=== PATIENT | female | born 1990 | race Two or more races ===

== ENCOUNTER 2016-10-06 18:08 | Emergency (ER) | payer MEDICAID ==
--- NOTE | ~2016-10-06 | ER ---
PATIENT'S NAME: GUS SEARS [facility] AGE: 26 Y [address] ROOM: [place] [id number] LOCATION: [facility] ADMIT DATE: 10/06/2016 ER/Outpatient Report DISCHARGE DATE: 10/06/2016 FAMILY PHYSICIAN: Aura Flores MD ATTENDING PHYSICIAN: Ray Bran Admission Time: 1808 hours. Time of Evaluation: 1957 hours. CHIEF COMPLAINT: Left flank plain pain, possible kidney stone. HISTORY OF PRESENT ILLNESS: Gus is a 26-year-old female who presents to the emergency room with her 2 children with an onset of left-sided back pain, discomfort in the last 24 to 36 hours. She reports last week she did have some increased frequency, but then this did go away. Her last menstrual cycle was about 2- 1/2 weeks ago. She has experienced some nausea, but no vomiting. She denies any fevers or chills. The patient does have a history of kidney stones, last one was 3 years ago in September. She did have to have surgery to remove this. She reports prior to this she has had multiple times of kidney stones and which she has been able to pass them. The patient denies any diarrhea or any other stomach pathology. PAST MEDICAL HISTORY: 1. Bipolar disease. 2. History of nephrolithiasis. 3. Postoperative left shoulder surgery. 4. Postoperative right knee surgery. 5. Postoperative T and A. ALLERGIES: PENICILLIN. CURRENT MEDICATIONS: 1. Depakote 250 mg 1 p.o. b.i.d. 2. Lexapro 150 mg 1 p.o. daily. 3. control pill 1 p.o. daily. SOCIAL HISTORY: The patient is a nonsmoker, denies any alcohol or drug use. FAMILY HISTORY: Not obtained. PATIENT'S NAME: GUS SEARS [facility] AGE: 26 Y [address] ROOM: [place], [place] [address] LOCATION: [facility] ADMIT DATE: 10/06/2016 ER/Outpatient Report DISCHARGE DATE: 10/06/2016 FAMILY PHYSICIAN: Aura Flores MD ATTENDING PHYSICIAN: Ray Bran REVIEW OF SYSTEMS: All systems were reviewed by myself and all negative with the exception of those noted in the HPI. PHYSICAL EXAMINATION: VITAL SIGNS: Current height 5 feet 6 inches, current weight 92 kg. Temperature 98.1, pulse 94, respirations 18, and blood pressure 121/56, and she is 94% on room air. Johny Coma Scale of 15. GENERAL: Gus is alert, cooperative, is having some intermittent pain to her left back, in which she does show some nonverbal cues indicating discomfort. SKIN: Overall is within normal limits. There is no rash to this left flank area. SKIN: Overall is within normal limits. No diaphoresis or pallor noted. HEENT: Eyes: Sclerae are nonicteric. Pupils are normal. Mouth and Throat: Oropharynx is clear. Buccal mucosa is moist. Tongue is midline. CHEST AND LUNGS: Lung sounds are clear throughout. HEART: Regular rhythm. No murmurs appreciated. ABDOMEN: Left flank area, CVA tenderness is present. It does not extend down into the groin or wrap-around. She denies any terrible pain in her suprapubic area, but a little discomfort. Bowel sounds are active, pretty soft throughout. There is no focal tenderness or guarding noted. No organomegaly present. LOWER EXTREMITIES: No peripheral edema is noted. NEUROLOGIC: Cranial nerves grossly intact. LABORATORY DATA: A urinalysis was obtained which does show 1+ turbidity, leukocytes 25 high with wbc's 2-5, moderate bacteria, epithelials is very small, and there is no hematuria or red blood cells noted. Please note, no other labs were done at this visit as the patient does not have anyone to be here with her and just wants to wait this out. ASSESSMENT: Urinary tract infection, rule out kidney stone. PLAN: We will have the patient increase her water intake. Strain her urine at home and may use ibuprofen or Tylenol for pain. Ciprofloxacin 500 mg 1 p.o. b.i.d. x10 days. It is sent along with Pyridium 100 mg 1 p.o. every 6 hours p.r.n. pain, #6 with no refills. She does know that we cannot rule out a kidney stone despite the negative hematuria, and if things do not improve, she is to follow up with her primary care physician, Dr. Flores, in the next 1-2 days. The patient is knowledgeable how to strain her urine and is aware of the risk PATIENT'S NAME: GUS SEARS [facility] AGE: 26 Y [address] ROOM: [place] [address] LOCATION: [facility] ADMIT DATE: 10/06/2016 ER/Outpatient Report DISCHARGE DATE: 10/06/2016 FAMILY PHYSICIAN: Aura Flores MD ATTENDING PHYSICIAN: Ray Bran of worsening and will return. The patient's condition is stable. FABIAN MCDUFFIE, BLOCKER AND SEWER FOR DO MITESH ESTRADA/javi /[id number] P d: 10/07/16 0221 t: 10/17/16 1330, OUTPATIENT REPORT
[~2016-10-06 18:08] MED LIST: ACETAMINOPHEN325 MG PO; APNO TOP; GUMMI BEAR MUL1 EACH PO; LANSINOH7 GM TOP; LATUDA40 MG PO; LEXAPRO10 MG PO; MOTRIN800 MG PO; PERCOCET 5-3251 EACH PO; PRENATAL 1+1)(P1 TAB PO; TUMS200 MG PO
[2016-10-06 20:04] LABS: BILIRUBIN URINE NEGATIVE (NEGATIVE); BLOOD URINE NEGATIVE /UL (NEGATIVE); GLUCOSE URINE NEGATIVE (NEGATIVE); KETONE URINE 5 mg/dL (NEGATIVE); LEUKOCYTES URINE 25 /UL (NEGATIVE); NITRITE URINE NEGATIVE (NEGATIVE); PROTEIN URINE NEGATIVE (NEGATIVE); SPEC GRAVITY URINE 1.015 (1.003-1.035); UROBILINOGEN URINE 4 mg/dL (NORMAL)
[2016-10-06 20:09] LABS: COLOR URINE YELLOW (YELLOW); TURBIDITY URINE 1+ (CLEAR)
[2016-10-06 20:11] LABS: RBC URINE NEGATIVE #/HPF (NEGATIVE)
[2016-10-06 20:12] LABS: BACTERIA URINE MODERATE (NEGATIVE); MUCUS URINE 2+ (NEGATIVE)
[2016-10-06 20:13] LABS: AMORPHOUS URINE 1+ (NEGATIVE)
[2016-11-26] MEDS ORDERED: NORTREL PO (12:36)
[2016-11-26] MEDS ORDERED: DEPAKOTE DELAY250 MG PO (12:37)
[2016-11-26] MEDS ORDERED: PEPTO BISMOL LIQ1 ML PO (12:39)
== END 2016-10-06 20:36 | disposition disaster alternative care site (69) ==
LOC: GMED 18:08
PROVIDERS: Emergency Medicine
DX: N39.0 Urinary tract infection, site not specified (principal); Z88.0 Allergy status to penicillin

== ENCOUNTER → 2016-10-10 | Outpatient (CLI) | payer MEDICAID ==
[~2016-10-10] MED LIST changes: +DEPAKOTE DELAY250 MG PO; +NORTREL PO; +PEPTO BISMOL LIQ1 ML PO
== END | disposition disaster alternative care site (69) ==
LOC: GRAD 11:30
DX: R31.9 Hematuria, unspecified (principal)

== ENCOUNTER 2016-12-01 08:05 | Day surgery (SDC) | payer MEDICAID ==
[~2016-12-01] VITALS: Ht 167.6 cm; Wt 84.8 kg
--- NOTE | ~2016-12-01 | OR ---
PATIENT'S NAME: GUS SEARS [facility] AGE: 26 Y [address] ROOM: [place] [address] LOCATION: [facility] ADMIT DATE: 12/01/2016 OR/Procedure Report DISCHARGE DATE: 12/01/2016 FAMILY PHYSICIAN: Aura Flores MD ATTENDING PHYSICIAN: Rosanne Murphy SURGEON: Rosanne Murphy MD MILKING MACHINE MECHANIC: DATE OF PROCEDURE: 12/01/2016 PREOPERATIVE DIAGNOSES: 1. Bilateral back pain. 2. Hematuria. 3. History of nephrolithiasis. POSTOPERATIVE DIAGNOSES: 1. Bilateral back pain. 2. Hematuria. 3. History of nephrolithiasis. PROCEDURES PERFORMED: 1. Cystoscopy. 2. Bilateral retrograde pyelograms. ANESTHESIA: MAC. COMPLICATIONS: None. INDICATION FOR PROCEDURE: The patient is a 26-year-old female with bilateral flank pain with microscopic hematuria with prior history of nephrolithiasis. The patient presents for cystoscopy and retrograde for further evaluation. PROCEDURE IN DETAIL: After informed consent was obtained, the patient was taken to the operating room. A MAC anesthetic was applied, and she was placed in the dorsal lithotomy position. The groin area was prepped and draped in the normal sterile fashion. Cystoscope was introduced into the urethra and bladder without difficulty. Next, plain films were taken. No bony abnormalities were noted. An 8-Spanish cone-tipped catheter was introduced into the distal right ureter, and contrast was injected. This revealed normal- caliber ureter without filling defects or masses. The collecting system was also normal. The calyces were normal and sharp. The system drained well. Next, retrograde pyelograms were completed on the left side. This also demonstrated a normal-caliber ureter and collecting system without masses, filling defects, or hydronephrosis. This side also drained well. The remainder of the bladder was completely within normal limits. The patient tolerated the procedure well and was transferred to the recovery room in [facility] PATIENT'S NAME: GUS SEARS [facility] AGE: 26 Y [address] ROOM: [place] [address] LOCATION: [facility] ADMIT DATE: 12/01/2016 OR/Procedure Report DISCHARGE DATE: 12/01/2016 FAMILY PHYSICIAN: Aura Flores MD ATTENDING PHYSICIAN: Rosanne Murphy condition. MD ELLIOTT ORTIZ/javi /[id number] CC: Aura Flores MD d: 12/01/16 1632 t: 12/22/16 1009, OPERATIVE SUMMARY
[2016-12-01 08:43] LABS: BASOPHIL % 0.3 %; EOSINOPHIL # 0.1 K/uL (0.0-0.5); EOSINOPHIL % 1.8 %; HEMOGLOBIN 14.3 g/dL (11.0-15.0); IMMATURE GRANULOCYTE % 0.5 %; LYMPHOCYTE # 2.9 K/uL (0.8-4.0); LYMPHOCYTE % 43.9 %; MCH 30.8 pg (27.0-34.0); MCHC 34.9 gm/dL (32.0-36.5); MCV 88.4 fl (83.0-98.0); MONOCYTE # 0.6 K/uL (0.0-1.0); MONOCYTE % 8.5 %; MPV 9.7 fl (9.4-12.4); NEUTROPHIL # (ANC) 2.9 K/uL (1.8-7.8); NRBC % 0 /100WBC (0-0.00); PLATELET COUNT 185 K/uL (150-450); RBC 4.64 M/uL (3.50-5.00); RDW-CV 12.3 % (11.9-14.6); WBC 6.5 K/uL (4.0-11.0)
[2016-12-01 09:03] LABS: ALBUMIN 3.6 gm/dL (3.5-5.0); ALK PHOS 34 IU/L (33-138); ALT 22 IU/L (12-78); AST 23 IU/L (10-40); BLOOD UREA NITROGEN 14 mg/dL (6-24); CALCIUM 8.4 mg/dL (8.5-10.5); CHLORIDE 107 mMol/L (96-110); CO2 26 mMol/L (22-32); CREATININE 0.8 mg/dL (0.5-1.1); ESTIMATED GFR (MDRD EQUATION) > 60; SODIUM 139 mMol/L (135-145); TOTAL BILIRUBIN 0.9 mg/dL (0.0-1.5); TOTAL PROTEIN 7.2 g/dL (6.0-8.4)
== END 2016-12-01 10:45 | disposition disaster alternative care site (69) ==
LOC: GSDC 08:05 → GPOC 13:00
PROVIDERS: Urology
PROC: BT14YZZ Fluoroscopy of Kidneys, Ureters and Bladder using Other Contrast (ICD-10-PCS; principal; 2016-12-01)
DX: R31.29 Other microscopic hematuria (principal); Z88.0 Allergy status to penicillin; J45.909 Unspecified asthma, uncomplicated; K21.9 Gastro-esophageal reflux disease without esophagitis; M06.9 Rheumatoid arthritis, unspecified; F31.9 Bipolar disorder, unspecified; F41.8 Other specified anxiety disorders; Z87.442 Personal history of urinary calculi; Z98.890 Other specified postprocedural states; Z79.899 Other long term (current) drug therapy
CPT/HCPCS: J1100; J1956; J2001; J2250; J2405; J7120

== ENCOUNTER 2017-02-08 15:11 | Emergency (ER) | payer SELFPAY ==
--- NOTE | ~2017-02-08 | ER ---
PATIENT'S NAME: GUS SEARS [facility] AGE: 27 Y [address] ROOM: [place] [address] LOCATION: [facility] ADMIT DATE: 02/08/2017 ER/Outpatient Report DISCHARGE DATE: 02/08/2017 FAMILY PHYSICIAN: Aura Flores MD ATTENDING PHYSICIAN: Ray Bran Time of Arrival: 1511 hours. Time of Evaluation: 1515 hours. CHIEF COMPLAINT: Right shoulder pain. HISTORY OF PRESENT ILLNESS: This is a 27-year-old female, who presents to the ER with right shoulder pain that started on Thursday. 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 She knows of no other injury at this time. She states she has had a rotator cuff problem on her left shoulder, and she feels like her right shoulder is feeling the same way that her left one did. She denies any other problems at this time. She did take Tylenol for her pain this morning. ALLERGIES: PENICILLIN. MEDICATIONS: Please see medication list in nurse's notes. PAST MEDICAL HISTORY: Bipolar. PAST SURGICAL HISTORY: Left rotator cuff. SOCIAL HISTORY: Drinks alcohol socially. Denies any smoking. REVIEW OF SYSTEMS: CONSTITUTIONAL: Denies any change in weight or fatigue. MUSCULOSKELETAL: Complaining of right shoulder pain. HEMATOLOGIC: No easy bruising or bleeding. SKIN: No lesions or rashes. PHYSICAL EXAMINATION: VITAL SIGNS: Height 5 feet 6 inches stated, weight 87 kg taken, blood pressure is 135/83, pulse 85, respirations 14, temperature 98.6 degrees PATIENT'S NAME: GUS SEARS [facility] AGE: 27 Y [address] ROOM: [place], [place] [address] LOCATION: [facility] ADMIT DATE: 02/08/2017 ER/Outpatient Report DISCHARGE DATE: 02/08/2017 FAMILY PHYSICIAN: Aura Flores MD ATTENDING PHYSICIAN: Ray Bran tympanically, and saturations 100% on room air. Strat[place] Coma Score is 15. GENERAL: An alert, calm, well-developed female, in mild distress. LUNGS: Clear to auscultation bilaterally. No wheezes or crackles. HEART: Regular rate and rhythm. EXTREMITIES: She does have decreased range of motion of her right upper extremity secondary to pain in her right shoulder. She has pain with palpation over all aspects of her shoulder. No tenderness over her clavicle or scapula on palpation. She has no tenderness into the trapezius muscle. She has full range of motion of her left upper extremity and her lower extremities. LABORATORY DATA AND X-RAYS: Labs, none were done. X-rays of the right shoulder were unremarkable. IMPRESSION: Right shoulder pain/musculoskeletal. ASSESSMENT AND PLAN: We did place the patient in an arm sling for support. We did give her 2 [place] here in the emergency room for her pain. We will dismiss her to home with a prescription for [place] to use as directed. She needs to continue ice. She may alternate her pain medication as needed with ibuprofen and follow up with her orthopedic of choice for followup care. The patient understands and agrees with care. FELIPE HONG PA-C FOR DO AVNI ESTRADA/javi /[id number] d: t: 02/17/17 1239, OUTPATIENT REPORT
== END 2017-02-08 15:50 | disposition disaster alternative care site (69) ==
LOC: GMED 15:11
DX: M25.511 Pain in right shoulder (principal); F31.9 Bipolar disorder, unspecified; Z79.1 Long term (current) use of non-steroidal anti-inflammatories (NSAID); Z88.0 Allergy status to penicillin; Z79.3 Long term (current) use of hormonal contraceptives; Z79.899 Other long term (current) drug therapy; Z98.890 Other specified postprocedural states